=== PATIENT | female | born 1990 | race Caucasian/White ===

== ENCOUNTER 2018-03-13 04:53 | Emergency (ER) | payer MEDICAID ==
[2018-03-13] MEDS ORDERED: ONDANSETRON 4 MG/2 ML VIAL IVP STA ×2 (05:07→06:08)
[2018-03-13] MEDS ORDERED: MORPHINE 10 MG/ML VIAL ONE ×2 (05:07→05:33)
[2018-03-13] MEDS ORDERED: SODIUM CHLORIDE 0.9% 1,000 ML IV ONE (05:07)
--- NOTE | 2018-03-13 05:12 | ED Physician Documentation ---
PD HPI NVD - Stated complaint Stated Complaint: LOW BLOOD SUGAR - Chief complaint Chief Complaint: Abd Pain - History obtained from History obtained from: Patient, Family - History of Present Illness Timing - onset: Yesterday Timing - details: Gradual onset, Still present Associated symptoms: Abdominal pain Contributing factors: Diabetes Similar symptoms before: Work up / diagnostics Recently seen: Not recently seen - Additonal information Additional information: Patient is a 27 year old female with a history of type one diabetes and gastroparesis who is presenting to the emergency department for nausea, vomiting and abdominal pain. Patient states that the last time she had an episode like this was 6 months or so ago. Patient has never had a gastric emptying study done before. Review of Systems Constitutional: denies: Fever, Chills GI: reports: Abdominal Pain, Nausea, Vomiting. denies: Diarrhea PD PAST MEDICAL HISTORY - Past Medical History Past Medical History: Yes Endocrine/Autoimmune: Type 1 diabetes - Past Surgical History Past Surgical History: No - Present Medications Home Medications: Ambulatory Orders Medication Instructions Recorded Confirmed Insulin Glargine [Lantus Solostar] 28 units SQ DAILY 03/13/18 03/13/18 Insulin Lispro [Humalog Kwikpen SQ DAILY 03/13/18 U-100] Metoclopramide [Reglan] 1 tab PO DAILY 03/13/18 03/13/18 Ondansetron Odt [Zofran] 4 mg TL Q6H PRN #14 tablet 03/13/18 Promethazine [Phenergan] 25 mg PO Q6H PRN #10 tab 03/13/18 - Allergies Allergies/Adverse Reactions: Allergies Allergy/AdvReac Type Severity Reaction Status Date / Time ciprofloxacin [From Cipro] Allergy Edema Verified 03/13/18 05:12 Penicillins Allergy Hives Verified 03/13/18 05:12 - Social History Does the pt smoke?: No Smoking Status: Never smoker Does the pt drink ETOH?: No Does the pt have substance abuse?: No - Immunizations Immunizations are current?: Yes - POLST Patient has POLST: No PD ED PE NORMAL - Vitals Vital signs reviewed: Yes - General General: Alert and oriented X 3 - HEENT HEENT: Atraumatic - Cardiac Cardiac: RRR - Respiratory Respiratory: No respiratory distress - Derm Derm: Normal color - Extremities Extremities: No deformity PD ED PE EXPANDED - HEENT HEENT: Dry mucous membranes - Abdomen Abdomen: Tender to palpation, Generalized/diffuse. No: Rebound, Guarding Results - Vitals Vitals: Vital Signs - 24 hr 03/13/18 03/13/18 03/13/18 04:56 05:29 05:52 Temperature 36.5 C Heart Rate 100 84 88 Respiratory 18 16 14 Rate Blood Pressure 103/71 100/70 101/66 O2 Saturation 98 96 96 03/13/18 03/13/18 03/13/18 06:14 06:22 07:05 Temperature Heart Rate 92 100 87 Respiratory 18 20 16 Rate Blood Pressure 101/69 101/69 100/60 O2 Saturation 100 100 97 Oxygen O2 Source Room air - Labs Labs: Laboratory Tests 03/13/18 03/13/18 03/13/18 05:02 05:05 05:05 WBC 18.9 H RBC 4.96 Hgb 14.7 Hct 44.6 MCV 89.9 MCH 29.6 MCHC 33.0 RDW 13.0 Plt Count 363 MPV 8.5 Neut # (Auto) 15.9 H Lymph # (Auto) 1.5 Bartholomew # (Auto) 1.3 H Eos # (Auto) 0.1 Baso # (Auto) 0.1 Absolute Nucleated RBC 0.01 Nucleated RBC % 0.1 VBG pH VBG pCO2 VBG pO2 VBG HCO3 VBG Total CO2 VBG O2 Saturation VBG Base Excess Sodium 139 Potassium 3.6 Chloride 102 Carbon Dioxide 27 Anion Gap 10.0 BUN 15 Creatinine 0.7 Estimated GFR (MDRD) 100 Glucose 138 H POC Whole Bld Glucose 130 H Calcium 8.8 Phosphorus 4.9 H Magnesium 1.7 Total Bilirubin 0.7 AST 17 ALT 16 Alkaline Phosphatase 67 Total Protein 7.3 Albumin 3.7 Globulin 3.6 Albumin/Globulin Ratio 1.0 Lipase 18 L Urine Color Urine Clarity Urine pH Ur Specific [place] Urine Protein Urine Glucose (UA) Urine Ketones Urine Occult Blood Urine Nitrite Urine Bilirubin Urine Urobilinogen Ur Leukocyte Esterase Ur Microscopic Review Urine Culture Comments Urine HCG, Qual Urine Opiates Screen Ur Oxycodone Screen Urine Methadone Screen Ur Propoxyphene Screen Ur Barbiturates Screen Ur Tricyclics Screen Ur Phencyclidine Scrn Ur Amphetamine Screen U Methamphetamines Scrn U Benzodiazepines Scrn Urine Cocaine Screen U Cannabinoids Screen Serum Ketones NEGATIVE 03/13/18 03/13/18 03/13/18 05:25 05:48 05:48 WBC RBC Hgb Hct MCV MCH MCHC RDW Plt Count MPV Neut # (Auto) Lymph # (Auto) Bartholomew # (Auto) Eos # (Auto) Baso # (Auto) Absolute Nucleated RBC Nucleated RBC % VBG pH 7.509 H VBG pCO2 28.5 L VBG pO2 21.1 L VBG HCO3 22.2 L VBG Total CO2 23.1 L VBG O2 Saturation 92.3 H VBG Base Excess 0.4 Sodium Potassium Chloride Carbon Dioxide Anion Gap BUN Creatinine Estimated GFR (MDRD) Glucose POC Whole Bld Glucose Calcium Phosphorus Magnesium Total Bilirubin AST ALT Alkaline Phosphatase Total Protein Albumin Globulin Albumin/Globulin Ratio Lipase Urine Color YELLOW Urine Clarity CLEAR Urine pH 6.5 Ur Specific [place] 1.020 Urine Protein NEGATIVE Urine Glucose (UA) >=1000 H Urine Ketones NEGATIVE Urine Occult Blood NEGATIVE Urine Nitrite NEGATIVE Urine Bilirubin NEGATIVE Urine Urobilinogen 0.2 (NORMAL) Ur Leukocyte Esterase NEGATIVE Ur Microscopic Review NOT INDICATED Urine Culture Comments NOT INDICATED Urine HCG, Qual NEGATIVE Urine Opiates Screen NEGATIVE Ur Oxycodone Screen NEGATIVE Urine Methadone Screen NEGATIVE Ur Propoxyphene Screen NEGATIVE Ur Barbiturates Screen NEGATIVE Ur Tricyclics Screen NEGATIVE Ur Phencyclidine Scrn NEGATIVE Ur Amphetamine Screen NEGATIVE U Methamphetamines Scrn NEGATIVE U Benzodiazepines Scrn NEGATIVE Urine Cocaine Screen NEGATIVE U Cannabinoids Screen POSITIVE H Serum Ketones PD MEDICAL DECISION MAKING - ED course Complexity details: reviewed old records, reviewed results, re-evaluated patient , considered differential, d/w patient ED course: Patient was seen and examined at bedside. Labs were drawn and patient was treated with ns bolus, zofran and morphine. patient's labs showed no ketosis, and blood sugar was normal. Patient's urinalysis also showed no ketones. Patient continued to wretch and was treated with additional zofran and haldol. patient denied marijuana use but her tox screen was positive. Patient had a leukocytosis but stated that she didn't think imaging was necessary at this time. patient responded well to the haldol. Patient's other labs were all within normal limits. Patient required no further work up and was stable for discharge with outpatient followup. - Sepsis Event Vital Signs: Vital Signs - 24 hr 03/13/18 03/13/18 03/13/18 04:56 05:29 05:52 Temperature 36.5 C Heart Rate 100 84 88 Respiratory 18 16 14 Rate Blood Pressure 103/71 100/70 101/66 O2 Saturation 98 96 96 03/13/18 03/13/18 03/13/18 06:14 06:22 07:05 Temperature Heart Rate 92 100 87 Respiratory 18 20 16 Rate Blood Pressure 101/69 101/69 100/60 O2 Saturation 100 100 97 Oxygen O2 Source Room air Departure - Departure Disposition: 01 Home, Self Care Clinical Impression: Vomiting Condition: Good Instructions: ED Nausea Vomiting Follow-Up: primary,care provider [Other] - Within 3 Days Prescriptions: Ondansetron Odt [Zofran] 4 mg TL Q6H PRN #14 tablet PRN Reason: Nausea / Vomiting Promethazine [Phenergan] 25 mg PO Q6H PRN #10 tab PRN Reason: Nausea / Vomiting Comments: Your diagnostics today were within normal limits aside from an elevated white blood cell count which could be caused by infection, stress or pain. You have been prescribed two different any nausea medications. It is important to try to stay hydrated with gatorade or other electrolyte solution. If you are going to stay in the area you will need to establish primary care. you may return to the emergency department at any time for new, worsening or uncontrollable symptoms. Discharge Date/Time: 03/13/18 07:20
[2018-03-13] MEDS ORDERED: MORPHINE 10 MG/ML VIAL IVP STA (05:19)
[2018-03-13 05:20] LABS: BASOPHILS # (AUTO) 0.1 10^3/uL (0.0-0.1); MONOCYTES # (AUTO) 1.3 10^3/uL (0.0-1.0)
[2018-03-13 05:22] LABS: KETONES, SERUM (ACETEST) NEGATIVE (NEGATIVE)
[2018-03-13 05:27] LABS: ALBUMIN 3.7 g/dL (3.2-5.5); ALKALINE PHOSPHATASE 67 IU/L (42-121); ALT ALANINE AMINOTRANSFERASE 16 IU/L (10-60); AST ASPARTATE AMINOTRANSFERASE 17 IU/L (10-42); BASOPHILS % (AUTO) 0.3 %; BILIRUBIN,TOTAL 0.7 mg/dL (0.2-1.0); BUN - BLOOD UREA NITROGEN 15 mg/dL (6-20); CALCIUM 8.8 mg/dL (8.5-10.3); CARBON DIOXIDE - CO2 27 mmol/L (21-32); CHLORIDE 102 mmol/L (101-111); CREATININE 0.7 mg/dL (0.4-1.0); EOSINOPHILS # (AUTO) 0.1 10^3/uL (0.0-0.7); EOSINOPHILS % (AUTO) 0.7 %; GFR - MDRD 100 (>89); GLUCOSE 138 mg/dL (70-100); HGB - HEMOGLOBIN 14.7 g/dL (12.0-16.0); LIPASE 18 U/L (22-51); LYMPHOCYTES # (AUTO) 1.5 10^3/uL (1.5-3.5); LYMPHOCYTES % (AUTO) 7.9 %; MAGNESIUM 1.7 mg/dL (1.7-2.8); MEAN CORPUSCULAR HEMOGLOBIN 29.6 pg (27.0-31.0); MEAN CORPUSCULAR VOLUME 89.9 fL (81.0-99.0); MEAN PLATELET VOLUME 8.5 fL (7.9-10.8); MONOCYTES % (AUTO) 6.9 %; NEUTROPHILS # (AUTO) 15.9 10^3/uL (1.5-6.6); NEUTROPHILS % (AUTO) 84.2 %; PHOSPHORUS 4.9 mg/dL (2.5-4.6); PLT - PLATELET COUNT 363 10^3/uL (130-450); RED BLOOD COUNT 4.96 10^6/uL (4.20-5.40); SODIUM 139 mmol/L (135-145); TOTAL PROTEIN 7.3 g/dL (6.7-8.2); WHITE BLOOD COUNT 18.9 x10^3/uL (4.8-10.8)
[2018-03-13 05:30] LABS: VBG BASE EXCESS 0.4 mmol/L (-2 - +2); VBG PCO2 28.5 mmHg (41-51); VBG PH 7.509 (7.31-7.41); VBG PO2 21.1 mmHg (25-47); VBG TOTAL CO2 23.1 mmol/L (24-29)
[2018-03-13 05:54] LABS: MUDS CUTOFF CONCENTRATIONS CUTOFF CONC BELOW:
[2018-03-13 05:56] LABS: BILIRUBIN,URINE NEGATIVE (NEGATIVE); GLUCOSE, URINE (UA) >=1000 mg/dL (NEGATIVE); KETONES,URINE (UA) NEGATIVE (NEGATIVE); LEUKOCYTE ESTERASE, URINE NEGATIVE (NEGATIVE); NITRITE,URINE NEGATIVE (NEGATIVE); OCCULT BLOOD,URINE NEGATIVE (NEGATIVE); PH,URINE 6.5 PH (5.0-7.5); PROTEIN,URINE NEGATIVE (NEGATIVE); UROBILINOGEN,URINE 0.2 (NORMAL) E.U./dL (NORMAL)
[2018-03-13 06:09] LABS: CLARITY,URINE CLEAR (CLEAR); HCG UR QUAL NEGATIVE
[2018-03-13 06:10] LABS: AMPHETAMINE SCREEN,URINE NEGATIVE (NEGATIVE); BENZODIAZEPINES SCREEN, URINE NEGATIVE (NEGATIVE); COCAINE SCREEN URINE NEGATIVE (NEGATIVE); METHADONE SCREEN, URINE NEGATIVE (NEGATIVE); METHAMPHETAMINES SCREEN, URINE NEGATIVE (NEGATIVE); OPIATE SCREEN, URINE NEGATIVE (NEGATIVE); OXYCODONE SCREEN, URINE NEGATIVE (NEGATIVE); PROPOXYPHENE SCREEN, URINE NEGATIVE (NEGATIVE); TRICYCLIC ANTIDEPRESSANT,URINE NEGATIVE (NEGATIVE)
[2018-03-13] MEDS ORDERED: HALOPERIDOL 5 MG/ML VIAL IVP ONE (06:25)
[2018-03-13 07:07] VITALS: BP 100/60
== END 2018-03-13 07:20 | disposition home or self-care (01) ==
LOC: ED 04:53
DX: R11.2 Nausea with vomiting, unspecified (principal); D72.829 Elevated white blood cell count, unspecified; E10.43 Type 1 diabetes mellitus with diabetic autonomic (poly)neuropathy; K31.84 Gastroparesis
CPT/HCPCS: 36415; 80053; 80306; 81001; 81003; 81025; 82009; 82803; 83690; 83735; 84100; 85025; 87086; 96361; 96374; 96375; 96376; 99283; 99284

== ENCOUNTER 2022-06-27 10:08 | Emergency (ER) | payer MEDICAID, OTHER ==
[2022-06-27 10:49] LABS: BILIRUBIN,URINE NEGATIVE (NEGATIVE)
[2022-06-27 10:53] LABS: CLARITY,URINE HAZY (CLEAR); HCG UR QUAL NEGATIVE
[2022-06-27 11:05] LABS: SQUAMOUS EPITHELIAL CELL,UR FEW Squamous (<= Few); WBC,URINE >25 /HPF (0-5)
[2022-06-27 11:06] LABS: BACTERIA,URINE Rare /HPF (None Seen)
--- NOTE | 2022-06-27 11:14 | ED Physician Documentation ---
PD HPI FEMALE - Stated complaint Stated Complaint: FEMALE - Chief complaint Chief Complaint: UTI - History obtained from History obtained from: Patient - History of Present Illness Timing - onset: Yesterday Timing - duration: Days (1) Timing - details: Abrupt onset, Still present Associated symptoms: Dysuria, Urinary frequency. No: Vaginal bleeding, Vaginal discharge, Genital sore/lesion Similar symptoms before: Diagnosis (c/w prior UTIs.) Recently seen: Not recently seen, Other (also out of her humalog insulin and no appt with pcp til later in month.) Review of Systems Constitutional: denies: Fever, Chills Nose: denies: Rhinorrhea / runny nose, Congestion Throat: denies: Sore throat Respiratory: denies: Cough : denies: Discharge, Vaginal bleeding PD PAST MEDICAL HISTORY - Past Medical History Endocrine/Autoimmune: Type 1 diabetes - Past Surgical History Past Surgical History: No - Present Medications Home Medications: Ambulatory Orders Medication Instructions Recorded Confirmed Insulin Glargine [Lantus Solostar] 30 units SQ QPM 03/13/18 06/27/22 Insulin Lispro [Humalog Kwikpen 5 units SQ DAILY 03/13/18 06/27/22 U-100] Metoclopramide [Reglan] 1 tab PO DAILY PRN 03/13/18 06/27/22 Insulin Lispro [Humalog Kwikpen See Rx Instructions .ROUTE 06/27/22 U-100] .COMPLEX #1 each Phenazopyridine HCl [Pyridium] 100 mg PO TID PRN #15 tablet 06/27/22 cephALEXin [Keflex] 500 mg PO TID #20 cap 06/27/22 - Allergies Allergies/Adverse Reactions: Allergies Allergy/AdvReac Type Severity Reaction Status Date / Time ciprofloxacin [From Cipro] Allergy Edema Verified 03/13/18 05:12 Penicillins Allergy Hives Verified 03/13/18 05:12 - Social History Does the pt smoke?: No Smoking Status: Never smoker Does the pt drink ETOH?: No Does the pt have substance abuse?: No - Immunizations Immunizations are current?: Yes - POLST Patient has POLST: No PD ED PE NORMAL - Vitals Vital signs reviewed: Yes - General General: Alert and oriented X 3, No acute distress, Well developed/nourished - Abdomen Abdomen: Soft, Non tender - Female Female : Deferred - Rectal Rectal: Deferred - Derm Derm: Normal color, Warm and dry - Neuro Neuro: Alert and oriented X 3, Normal speech Results - Vitals Vitals: Oxygen O2 Source Room air - Labs Labs: Laboratory Tests 06/27/22 10:39 Urine Color ORANGE Urine Clarity HAZY Urine pH Ur Specific [place] Urine Protein Urine Glucose (UA) Urine Ketones Urine Occult Blood Urine Nitrite Urine Bilirubin NEGATIVE Urine Urobilinogen Ur Leukocyte Esterase Urine RBC 6-10 H Urine WBC >25 H Ur Squamous Epith Cells FEW Squamous Urine Bacteria Rare Ur Microscopic Review INDICATED Urine Culture Comments NOT INDICATED Urine HCG, Qual NEGATIVE PD MEDICAL DECISION MAKING - ED course Complexity details: considered differential (symptoms c/w UTI. UA showing colration from pyridium, but does have white cells, bacteria. ), d/w patient Departure - Departure Disposition: 01 Home, Self Care Clinical Impression: UTI (urinary tract infection), Dysuria, Diabetes Condition: Stable Record reviewed to determine appropriate education?: Yes Instructions: ED UTI Cystitis Female Prescriptions: Insulin Lispro [Humalog Kwikpen U-100] See Rx Instructions .ROUTE .COMPLEX #1 each cephALEXin [Keflex] 500 mg PO TID #20 cap Phenazopyridine HCl [Pyridium] 100 mg PO TID PRN #15 tablet PRN Reason: Abdominal Pain Comments: Your urinalysis looks consistent enough with bladder infection along with your symptoms. We can treat with cephalexin 3 times daily for a week. You can continue phenazopyridine if needed for urinary discomfort. Tylenol if needed for fevers or pains. I also wrote for your Humalog pen. Please use it per your usual sliding scale. I sent your prescriptions to your preferred pharmacy. Discharge Date/Time: 06/27/22 12:00
[2022-06-27] MEDS ORDERED: cephALEXin 250 MG CAPSULE PO STA (11:34)
[2022-06-27] MEDS ORDERED: ACETAMINOPHEN 325 MG TABLET PO STA (11:35)
[2022-06-27 12:00] VITALS: BP 112/78
== END 2022-06-27 12:00 | disposition home or self-care (01) ==
LOC: ED 10:08
DX: N39.0 Urinary tract infection, site not specified (principal); B96.89 Other specified bacterial agents as the cause of diseases classified elsewhere; E10.9 Type 1 diabetes mellitus without complications; Z79.4 Long term (current) use of insulin
CPT/HCPCS: 81001; 81025; 99282; 99283; A9270; 81003; 87086

== ENCOUNTER 2022-08-17 19:22 | Emergency (ER) | payer SELFPAY ==
[2022-08-17 19:58] LABS: BILIRUBIN,URINE NEGATIVE (NEGATIVE); GLUCOSE, URINE (UA) >=1000 mg/dL (NEGATIVE); KETONES,URINE (UA) NEGATIVE (NEGATIVE); LEUKOCYTE ESTERASE, URINE TRACE (NEGATIVE); NITRITE,URINE NEGATIVE (NEGATIVE); OCCULT BLOOD,URINE TRACE-INTA (NEGATIVE); PROTEIN,URINE NEGATIVE (NEGATIVE); UROBILINOGEN,URINE 0.2 (NORMAL) E.U./dL (NORMAL)
[2022-08-17 20:01] LABS: CLARITY,URINE CLOUDY (CLEAR); HCG UR QUAL NEGATIVE
[2022-08-17 20:10] LABS: BACTERIA,URINE Few /HPF (None Seen); RBC,URINE 0-5 /HPF (0-5); SQUAMOUS EPITHELIAL CELL,UR RARE Squamous (<= Few); WBC,URINE >25 /HPF (0-5)
[2022-08-17 22:37] VITALS: BP 111/74
[2022-08-17 23:11] LABS: CALCIUM 8.6 mg/dL (8.5-10.3); CREATININE 0.6 mg/dL (0.4-1.0); POTASSIUM 3.6 mmol/L (3.5-5.0)
[2022-08-17] MEDS ORDERED: ONDANSETRON ODT 4 MG Prepack 2 TL PRN (23:12)
[2022-08-17] MEDS ORDERED: SULFAMETH/TRIMETH DS 800/160 MG TABLET PO STA (23:12)
--- NOTE | 2022-08-17 23:15 | ED Physician Documentation ---
History of Present Illness - Stated complaint Stated Complaint: FEMALE /BACK PX - Chief complaint Chief Complaint: UTI - History obtained from History obtained from: Patient - Additonal information Additional information: The patient comes to the emergency department with chief complaint of dysuria for the last couple of days. She actually states that she has felt as though she has had a UTI on and off for about the last month and a half since treatment of her last urinary tract infection. The patient denies fevers or chills. She has had intermittent nausea. She has had some upper abdominal pain that has come and gone today. She has occasional back pain. No other complaints at this time. She does note that she is a type I diabetic and is out of her Lantus and would like to know if that can be refilled. Review of Systems Ten Systems: 10 systems reviewed and negative Constitutional: reports: Reviewed and negative Eyes: reports: Reviewed and negative Ears: reports: Reviewed and negative Nose: reports: Reviewed and negative Throat: reports: Reviewed and negative Cardiac: reports: Reviewed and negative Respiratory: reports: Reviewed and negative GI: reports: Nausea : reports: Dysuria Skin: reports: Reviewed and negative Musculoskeletal: reports: Back pain Neurologic: reports: Reviewed and negative Psychiatric: reports: Reviewed and negative Endocrine: reports: Reviewed and negative Immunocompromised: reports: Reviewed and negative PD PAST MEDICAL HISTORY - Past Medical History Past Medical History: Yes Endocrine/Autoimmune: Type 1 diabetes - Past Surgical History Past Surgical History: No - Present Medications Home Medications: Ambulatory Orders Medication Instructions Recorded Confirmed Insulin Glargine [Lantus Solostar] 30 units SQ QPM 03/13/18 08/17/22 Insulin Lispro [Humalog Kwikpen 5 units SQ DAILY 03/13/18 08/17/22 U-100] Insulin Lispro [Humalog Kwikpen See Rx Instructions .ROUTE 06/27/22 08/17/22 U-100] .COMPLEX #1 each Insulin Glargine,Hum.rec.anlog 32 unit SQ HS #320 ml 08/17/22 [Insulin Glargine] Sulfamethox/Trimeth 800/160 1 each PO BID #14 tablet 08/17/22 [Bactrim Ds 800/160] cephALEXin [Keflex] 500 mg PO Q6H #28 cap 08/17/22 - Allergies Allergies/Adverse Reactions: Allergies Allergy/AdvReac Type Severity Reaction Status Date / Time ciprofloxacin [From Cipro] Allergy Edema Verified 08/17/22 19:40 Penicillins Allergy Hives Verified 08/17/22 19:40 - Social History Does the pt smoke?: No Smoking Status: Never smoker Does the pt drink ETOH?: No Does the pt have substance abuse?: No - Immunizations Immunizations are current?: Yes - POLST Patient has POLST: No PD ED PE NORMAL - Vitals Vital signs reviewed: Yes - General General: Alert and oriented X 3, No acute distress, Well developed/nourished - HEENT HEENT: Atraumatic, PERRL, EOMI, Moist mucous membranes - Neck Neck: Supple, no meningeal sign - Cardiac Cardiac: RRR, No murmur, Strong equal pulses - Respiratory Respiratory: No respiratory distress, Clear bilaterally - Abdomen Abdomen: Soft, Non tender, Non distended - Derm Derm: Normal color, Warm and dry, No rash - Extremities Extremities: No deformity, No edema - Neuro Neuro: Alert and oriented X 3 - Psych Psych: Normal mood, Normal affect Results - Vitals Vitals: Vital Signs - 24 hr 08/17/22 08/17/22 19:34 22:36 Temperature 36.7 C 36.3 C L Heart Rate 86 85 Respiratory 14 16 Rate Blood Pressure 111/72 111/74 O2 Saturation 98 99 Oxygen O2 Source Room air - Labs Labs: Laboratory Tests 08/17/22 08/17/22 19:41 23:00 Sodium 136 Potassium 3.6 Chloride 101 Carbon Dioxide 25 Anion Gap 10.0 BUN 12 Creatinine 0.6 Estimated GFR (MDRD) 115 Glucose 123 H Calcium 8.6 Urine Color YELLOW Urine Clarity CLOUDY Urine pH 7.0 Ur Specific [place] 1.020 Urine Protein NEGATIVE Urine Glucose (UA) >=1000 H Urine Ketones NEGATIVE Urine Occult Blood TRACE-INTA Urine Nitrite NEGATIVE Urine Bilirubin NEGATIVE Urine Urobilinogen 0.2 (NORMAL) Ur Leukocyte Esterase TRACE H Urine RBC 0-5 Urine WBC >25 H Ur Squamous Epith Cells RARE Squamous Urine Bacteria Few Ur Microscopic Review INDICATED Urine Culture Comments INDICATED Urine HCG, Qual NEGATIVE PD Medical Decision Making - ED course Complexity details: reviewed results, re-evaluated patient, considered differential, d/w patient ED course: The patient was worked up with a urinalysis, which did show findings consistent with UTI. She was also noted to have a glucose of greater than 1000 in her UA, so a fingerstick glucose was performed. The patient was started on Bactrim. She did also report some nausea and though she did not want a dose of nausea medicine here, she was given a prepack of Zofran to go home with. We have discussed symptomatic management at home and the need to take all the antibiotics as directed. We have discussed the usual indications for return Departure - Departure Disposition: Home, Self Care Clinical Impression: Cystitis, Hyperglycemia due to type 1 diabetes mellitus Condition: Stable Instructions: ED Hyperglycemia Diabetic, ED UTI Cystitis Female Prescriptions: Sulfamethox/Trimeth 800/160 [Bactrim Ds 800/160] 1 each PO BID #14 tablet Insulin Glargine,Hum.rec.anlog [Insulin Glargine] 32 unit SQ HS #320 ml cephALEXin [Keflex] 500 mg PO Q6H #28 cap Comments: You have been given your first dose of antibiotics in the emergency department today. Prescriptions for Lantus and the antibiotic have been electronically transmitted to the [facility] pharmacy in [place] at your request. Please take all the antibiotics as directed, until the course is complete. Please follow- up with your primary care physician, as needed.
== END 2022-08-17 23:35 | disposition home or self-care (01) ==
LOC: ED 19:22
DX: N30.90 Cystitis, unspecified without hematuria (principal); E10.65 Type 1 diabetes mellitus with hyperglycemia; R11.0 Nausea
CPT/HCPCS: 36415; 80048; 81001; 81025; 87077; 87086; 87181; 99283; 99284; A9270; 81003

== ENCOUNTER 2023-03-20 20:00 | Emergency (ER) | payer OTHER ==
[2023-03-20 20:08] VITALS: BP 144/88
[2023-03-20] MEDS ORDERED: FLUCONAZOLE 100 MG TABLET PO STA (20:26)
--- NOTE | 2023-03-20 20:29 | ED Physician Documentation ---
History of Present Illness - Stated complaint Stated Complaint: FEMALE - Chief complaint Chief Complaint: General - History obtained from History obtained from: Patient - Additonal information Additional information: The patient comes to the emergency department chief complaint of foul-smelling vaginal output after a random sexual encounter about 2-1/2 weeks ago. The patient states she was intoxicated and had sexual intercourse, both orally and vaginally, with an unknown man. She states that he is from somewhere else and she has had no contact with them since. She states she is concerned because the condom kept coming off and she is first of all suspicious that there may still be a condom retained in her vagina, and also, That she may have contracted a sexually transmitted infection. She states that she started her period about a week after the sexual encounter and that she uses vaginal cups. She noticed that the contents of the cups smelled more foul than she would normally expect on her period and wondered if there was an infection. She states that since then, and her odor has been worse than usual, though she feels that discharge output is about the same as usual. She states she has had some cramping in her pelvic area but denies any other pain or discomfort. She has had some itching is concerned about a yeast infection. The patient denies any pain higher up in her abdomen. No fevers or chills. No nausea or vomiting. She has had 1 other sexual partner since and states that that person does not have any symptoms that she knows of. No other complaints at this time. PD PAST MEDICAL HISTORY - Past Medical History Endocrine/Autoimmune: Type 1 diabetes - Past Surgical History Past Surgical History: No - Present Medications Home Medications: Ambulatory Orders Medication Instructions Recorded Confirmed Insulin Glargine [Lantus Solostar] 30 units SQ QPM 03/13/18 08/17/22 Insulin Lispro [Humalog Kwikpen 5 units SQ DAILY 03/13/18 08/17/22 U-100] Insulin Lispro [Humalog Kwikpen See Rx Instructions .ROUTE 06/27/22 08/17/22 U-100] .COMPLEX #1 each Insulin Glargine,Hum.rec.anlog 32 unit SQ HS #320 ml 08/17/22 [Insulin Glargine] Sulfamethox/Trimeth 800/160 1 each PO BID #14 tablet 08/17/22 [Bactrim Ds 800/160] cephALEXin [Keflex] 500 mg PO Q6H #28 cap 08/17/22 Fluconazole [Diflucan] 1 tablet PO ONCE 1 Days #1 tablet 03/20/23 - Allergies Allergies/Adverse Reactions: Allergies Allergy/AdvReac Type Severity Reaction Status Date / Time ciprofloxacin [From Cipro] Allergy Edema Verified 03/20/23 20:05 Penicillins Allergy Hives Verified 03/20/23 20:05 - Social History Does the pt smoke?: No Smoking Status: Never smoker Does the pt drink ETOH?: No Does the pt have substance abuse?: No - Immunizations Immunizations are current?: Yes - POLST Patient has POLST: No PD ED PE NORMAL - Vitals Vital signs reviewed: Yes - General General: Alert and oriented X 3, No acute distress, Well developed/nourished - HEENT HEENT: Atraumatic, PERRL, EOMI, Moist mucous membranes, Pharynx benign - Neck Neck: Supple, no meningeal sign - Respiratory Respiratory: No respiratory distress - Abdomen Abdomen: Soft, Non tender, Non distended - Female Female : Data Sciences Director present (Nursing staff), Other (Normal external female genitalia. Mild white discharge, non-malodorous, and vaginal canal. Approximately 1 cm diameter macerated area over cervix adjacent to os. Os is friable and bleeds easily on swabbing. No palpable masses. Bimanual exam is unremarkable.) - Derm Derm: Normal color, Warm and dry, No rash - Extremities Extremities: No deformity - Neuro Neuro: Alert and oriented X 3 - Psych Psych: Normal mood, Normal affect Results - Vitals Vitals: Vital Signs - 24 hr 03/20/23 20:02 Temperature 36.8 C Heart Rate 106 H Respiratory 16 Rate Blood Pressure 144/88 H O2 Saturation 100 Oxygen O2 Source Room air PD Medical Decision Making - ED course Complexity details: reviewed results, re-evaluated patient, considered differential, d/w patient ED course: The patient was treated with Diflucan in the emergency department. I have sent a wet mount and swabs for gonorrhea and chlamydia. The patient also requested a throat culture and that has been done as well. At this point in time, the patient's exam is actually fairly benign although I have discussed with her that the maceration and friability of her cervix should be followed up by her animal pathologist. The patient has had a Pap within the last 6 months and does not have any palpable masses, and there were a number of possible benign explanations for the friable cervix but considering patient's sexual history and findings, close gynecologic follow-up is advisable. The patient expresses understanding. I have sent a prescription for follow-up dose of Diflucan to the pharmacy of the patient's choice. Discussed the usual indications for return. Departure - Departure Disposition: 01 Home, Self Care Clinical Impression: Vaginal discharge Condition: Stable Instructions: STD Poss Prescriptions: Fluconazole [Diflucan] 1 tablet PO ONCE 1 Days #1 tablet Comments: Swabs have been sent testing for common sexually transmitted diseases including trichomonas, gonorrhea, and chlamydia. You have been treated presumptively for a yeast infection in the ED today, and a prescription for your follow-up dose of Diflucan has been electronically transmitted to the [facility] pharmacy in [place]. Your vaginal exam is actually fairly normal except, as we discussed, for the raw area on your cervix and the easy bleeding. You do have a fairly small cervical opening and this may be part of the tendency to bleed, but you should definitely follow-up with your animal pathologist within the next month or so to have the area rechecked and make sure they do not feel that you need a repeat Pap smear earlier than the 1 year mitchell. As far as your other testing, it does not come back right away but we will get results within the next few days. Any positive results will result in you being notified by phone at home by one of her ED staff and the treatment plan set up. If any of your sexually transmitted infection results come back positive, you will need to notify any sexual partners that you can and to make sure that they are treated before further sexual contact.
[2023-03-20 20:55] LABS: BILIRUBIN,URINE NEGATIVE (NEGATIVE); GLUCOSE, URINE (UA) >=1000 mg/dL (NEGATIVE); KETONES,URINE (UA) NEGATIVE (NEGATIVE); LEUKOCYTE ESTERASE, URINE NEGATIVE (NEGATIVE); NITRITE,URINE NEGATIVE (NEGATIVE); OCCULT BLOOD,URINE NEGATIVE (NEGATIVE); PROTEIN,URINE NEGATIVE (NEGATIVE); UROBILINOGEN,URINE 0.2 (NORMAL) E.U./dL (NORMAL)
[2023-03-20 20:58] LABS: CLARITY,URINE CLEAR (CLEAR); HCG UR QUAL NEGATIVE
[2023-03-20 23:12] LABS: CHLAMYDIA TRACHOMATIS DNA NEGATIVE (NEGATIVE); NEISSERIA GONORRHOEAE DNA NEGATIVE (NEGATIVE); TRICHOMONAS VAGINALIS DNA NEGATIVE (NEGATIVE)
--- NOTE | 2023-03-21 11:43 | ED Physician Documentation ---
ED Addendum - Addendum Addendum: 03/21/23 11:42 Wet mount positive for clue cells. I sent a prescription for Flagyl 5 mg p.o. twice daily for 7 days to the [facility] on the chart. I called the number on the chart and left a voicemail for her to call back for results. When she calls back she can probably stop the Diflucan. Diagnosis: 1. Bacterial vaginosis. 03/21/23 11:42
== END 2023-03-20 20:47 | disposition home or self-care (01) ==
LOC: ED 20:00
DX: N76.0 Acute vaginitis (principal); B96.89 Other specified bacterial agents as the cause of diseases classified elsewhere; E10.9 Type 1 diabetes mellitus without complications
CPT/HCPCS: 81003; 81025; 87070; 87210; 87491; 87591; 87661; 99283; 99284; A9270; 81001; 87086

== ENCOUNTER 2023-07-07 08:00 | Outpatient (CLI) | payer OTHER | END 2023-07-07 23:58 | disposition home or self-care (01) | LOC: LAB.N 08:00 | PROVIDERS: ATTEND Nurse Practitioner | DX: R30.0 Dysuria (principal) | CPT/HCPCS: 87086 ==

== ENCOUNTER 2024-08-12 18:59 | Observation (INO) ==
[2024-08-12 19:13] LABS: BASOPHILS # (AUTO) 0.1 10^3/uL (0.0-0.1); BASOPHILS % (AUTO) 0.7 %; EOSINOPHILS % (AUTO) 0.2 %; HCT - HEMATOCRIT 43.6 % (37.0-47.0); HGB - HEMOGLOBIN 14.3 g/dL (12.0-16.0); LYMPHOCYTES # (AUTO) 1.7 10^3/uL (1.5-3.5); LYMPHOCYTES % (AUTO) 12.5 %; MEAN CORPUSCULAR HEMOGLOBIN 29.4 pg (27.0-31.0); MEAN CORPUSCULAR HGB CONC 32.8 g/dL (32.0-36.0); MEAN CORPUSCULAR VOLUME 89.5 fL (81.0-99.0); MEAN PLATELET VOLUME 9.7 fL (7.9-10.8); MONOCYTES # (AUTO) 0.9 10^3/uL (0.0-1.0); MONOCYTES % (AUTO) 6.6 %; NEUTROPHILS # (AUTO) 10.8 10^3/uL (1.5-6.6); NEUTROPHILS % (AUTO) 79.6 %; PLT - PLATELET COUNT 276 10^3/uL (130-450); RED BLOOD COUNT 4.87 10^6/uL (4.20-5.40); RED CELL DISTRIBUTION WIDTH 13.6 % (12.0-15.0); WHITE BLOOD COUNT 13.6 x10^3/uL (4.8-10.8)
--- NOTE | 2024-08-12 19:19 | ED Physician Documentation ---
History of Present Illness Stated complaint Stated Complaint: HIGH BLOOD SUGAR Chief complaint Chief Complaint: General History obtained from History obtained from: Patient and EMS Additonal information Additional information: The patient is brought to the emergency department by EMS for chief complaint of elevated blood sugar vomiting and "I think I have a kidney infection and DKA". The patient has longstanding history of type 1 diabetes and is currently on 32 units of Lantus every evening. She also doses her Humalog at 1 unit per 8 g of carbs ingested, with an adjustment factor. The patient states that for the last several days, she has noticed that her urine smelled bad and she was concerned that she might have a urinary tract infection. She states she started vomiting this morning and so she did not take her Humalog because she was not ingesting any food. The patient states that she did not feel good so she was mostly laying down and did not get up to check her blood sugar. No other complaints at this time. She has had DKA multiple times before, usually associated with some sort of infection. Meds/Allgy Home Medications Ambulatory Orders Medication Instructions Recorded Confirmed insulin glargine 100 unit/mL (3 30 units SQ QPM 03/13/18 08/17/22 mL) subcutaneous pen (Lantus Solostar U-100 Insulin) insulin lispro 100 unit/mL 5 units SQ DAILY 03/13/18 08/17/22 subcutaneous pen (Humalog KwikPen (U-100) Insulin) insulin lispro 100 unit/mL See Rx Instructions .Route 06/27/22 08/17/22 subcutaneous pen (Humalog KwikPen .COMPLEX diabetes #1 ea (U-100) Insulin) cephalexin 500 mg capsule 500 mg PO Q6H #28 caps 08/17/22 insulin glargine 100 unit/mL 32 unit (0.32 mL) SQ HS #320 mL 08/17/22 subcutaneous solution sulfamethoxazole 800 1 ea PO BID #14 tabs 08/17/22 mg-trimethoprim 160 mg tablet fluconazole 150 mg tablet 1 tab PO ONCE 1 day #1 tab 03/20/23 (Diflucan) metronidazole 500 mg tablet 500 mg PO BID 7 days #14 tabs 03/21/23 Allergies Allergies Allergy/AdvReac Type Severity Reaction Status Date / Time ciprofloxacin (From Cipro) Allergy Edema Verified 08/12/24 19:14 Penicillins Allergy Hives Verified 08/12/24 19:14 [facility] Social History Social History Smoking Status: Never smoker Second hand tobacco smoke exposure: No Do you dip or chew tobacco?: No Do you vape?: No Relationship: Level: Independent Do you feel safe in your home environment?: Yes Suffered physical, verbal, emotional, or financial abuse?: No History of Abuse: No POLST Patient has POLST: No Exam Constitutional normal general appearance and no apparent distress The patient appears moderately uncomfortable otherwise no apparent distress. HENMT normocephalic, head/scalp atraumatic, external nose normal and oral mucous membranes normal Eyes EOMs intact bilaterally Neck/C-Spine visual inspection normal and supple Respiratory breath sounds equal bilaterally and clear to auscultation bilaterally Mild [place] respirations but otherwise normal effort. Cardiovascular normal heart rate noted, regular rhythm noted and no edema Gastrointestinal abdomen normal to inspection, abdomen soft to palpation, nontender to palpation and nondistended Genitourinary no CVA tenderness Extremities normal to inspection Neurology Alert, grossly intact Psychiatry mental status grossly normal Skin skin color normal Results Vitals Vitals: Vital Signs - 24 hr 08/12/24 19:14 08/12/24 19:17 08/12/24 19:51 Temperature 36.5 C Temperature Source Tympanic Pulse Rate 96 Respiratory Rate 24 Blood Pressure 113/61 O2 Saturation 94 O2 Source Room air Pain Intensity 6 6 7 08/12/24 20:55 08/12/24 21:17 08/12/24 21:33 Temperature Temperature Source Pulse Rate 91 Respiratory Rate 20 Blood Pressure 115/75 O2 Saturation 97 O2 Source Room air Pain Intensity 6 9 5 Oxygen O2 Source Room air Labs Labs: Laboratory Tests 08/12/24 08/12/24 08/12/24 19:04 19:19 20:58 WBC 13.6 H RBC 4.87 Hgb 14.3 Hct 43.6 MCV 89.5 MCH 29.4 MCHC 32.8 RDW 13.6 Plt Count 276 MPV 9.7 Neut # (Auto) 10.8 H Lymph # (Auto) 1.7 [place] # (Auto) 0.9 Eos # (Auto) 0.0 Baso # (Auto) 0.1 Absolute Nucleated RBC 0.00 Nucleated RBC % 0.0 VBG pH 7.255 L VBG pCO2 30.6 L VBG pO2 67.0 H VBG HCO3 13.6 L VBG Total CO2 15.0 L VBG O2 Saturation 90.0 H VBG Base Excess -14.0 L Sodium 132 L 135 Potassium 4.7 H 4.4 Chloride 95 L 107 Carbon Dioxide 13 L 14 L Anion Gap 24.0 H 14.0 H BUN 15 13 Creatinine 0.7 0.7 Estimated GFR (MDRD) 95 95 Glucose 409 H 242 H Calcium 8.6 7.3 L Magnesium 1.6 L Total Bilirubin 0.8 AST 9 L ALT 8 L Alkaline Phosphatase 59 Total Protein 7.2 Albumin 3.9 Globulin 3.3 Albumin/Globulin Ratio 1.2 Lipase < 10 L Serum HCG, Qual NEGATIVE Urine Color LIGHT YELLOW Urine Clarity CLEAR Urine pH 5.5 Ur Specific [place] 1.025 Urine Protein NEGATIVE Urine Glucose (UA) >=1000 H Urine Ketones >=80 H Urine Occult Blood NEGATIVE Urine Nitrite NEGATIVE Urine Bilirubin NEGATIVE Urine Urobilinogen 0.2 (NORMAL) Ur Leukocyte Esterase NEGATIVE Ur Microscopic Review NOT INDICATED Urine Culture Comments NOT INDICATED Serum Ketones MODERATE H PD Medical Decision Making ED course Complexity details: reviewed old records, reviewed results, re-evaluated patient , considered differential and d/w patient ED course: The patient was worked up with labs, including ER abdominal panel, CBC, serum ketones, and test, as well as VBG. Urinalysis was also ordered. She was started on a liter of 0.9 normal saline given 12 units of regular insulin, as well as Phenergan, as the Zofran she had received and route was not co ntrolling her nausea well enough. The patient was given an initial total of 2 L of normal saline and following this and had a blood sugar that had come down from the initial level of 409 on labs to 268. She was started on a 3rd L of normal saline and an insulin drip at 6 units/h was ordered. Her other laboratory studies showed a white count of 13.6 with normal H&H, VBG pH of 7.255 pCO2 of 30.6 and bicarb of 13.6. Her potassium was 4.4 and glucose was initially 409. Her anion gap was 24 and she was positive for serum ketones. I discussed the case with telemetry hospitalist on-call and he did agree to admit the patient to his service. The patient by then had been switched to insulin drip at 3 units/h and D5 half-normal saline at 250 cc/h because her blood sugar was down to the 190s. Patient remained stable throughout the rest of her stay in the ED and was transferred to the ICU. Discharge Plan Discharge Patient Disposition: [facility] DC/Xfer Condition: Critical Clinical Impression: DKA (diabetic ketoacidosis) Qualifiers: Diabetes mellitus type: type 1 Diabetes mellitus complication detail: without coma Qualified Code(s): E10.10 - Type 1 diabetes mellitus with ketoacidosis without coma Interventions: ED Admission Assessment Last Done: 08/12/24 22:07
[2024-08-12] MEDS: SODIUM CHLORIDE 0.9% 1,000 ML IV STA ×3 (19:21→20:48)
[2024-08-12 19:22] LABS: VBG HCO3 13.6 mmol/L (23-28); VBG PCO2 30.6 mmHg (41-51); VBG PH 7.255 (7.31-7.41)
[2024-08-12 19:23] LABS: BILIRUBIN,URINE NEGATIVE (NEGATIVE); GLUCOSE, URINE (UA) >=1000 mg/dL (NEGATIVE); KETONES,URINE (UA) >=80 mg/dL (NEGATIVE); LEUKOCYTE ESTERASE, URINE NEGATIVE (NEGATIVE); NITRITE,URINE NEGATIVE (NEGATIVE); OCCULT BLOOD,URINE NEGATIVE (NEGATIVE); PH,URINE 5.5 PH (5.0-7.5); PROTEIN,URINE NEGATIVE (NEGATIVE); UROBILINOGEN,URINE 0.2 (NORMAL) E.U./dL (NORMAL)
[2024-08-12 19:27] LABS: CLARITY,URINE CLEAR (CLEAR)
[2024-08-12] MEDS ORDERED: PROMETHAZINE 25 MG/1 ML VIAL ONE (19:29)
[2024-08-12] MEDS: PROMETHAZINE INJ 25 MG in SODIUM CHLORIDE 0.9% 50 ML IV STA (19:31)
[2024-08-12] MEDS: INSULIN REGULAR, HUMAN 300 UNIT/3 ML PEN IVP STA (19:33)
[2024-08-12 19:40] LABS: HCG,QUALITATIVE BLOOD NEGATIVE
[2024-08-12 19:47] LABS: ALBUMIN 3.9 g/dL (3.2-5.5); ALBUMIN/GLOBULIN RATIO 1.2 (1.0-2.2); ALKALINE PHOSPHATASE 59 IU/L (42-121); ALT ALANINE AMINOTRANSFERASE 8 IU/L (10-60); AST ASPARTATE AMINOTRANSFERASE 9 IU/L (10-42); BILIRUBIN,TOTAL 0.8 mg/dL (0.2-1.0); BUN - BLOOD UREA NITROGEN 15 mg/dL (6-20); CALCIUM 8.6 mg/dL (8.5-10.3); CARBON DIOXIDE - CO2 13 mmol/L (21-32); CHLORIDE 95 mmol/L (101-111); CREATININE 0.7 mg/dL (0.6-1.3); GFR - MDRD 95 (>89); GLUCOSE 409 mg/dL (74-104); LIPASE < 10 U/L (11-82); POTASSIUM 4.7 mmol/L (3.5-4.5); SODIUM 132 mmol/L (135-145); TOTAL PROTEIN 7.2 g/dL (6.4-8.9)
[2024-08-12] MEDS: HYDROmorphone 0.5 MG/0.5 ML SYRINGE IVP STA ×2 (19:51→21:17)
[2024-08-12 20:03] LABS: KETONES, SERUM (ACETEST) MODERATE (NEGATIVE)
[2024-08-12] MEDS: INSULIN REGULAR IN 0.9 % NS 100 UNIT/100 ML BAG IV STA (20:30)
[2024-08-12] MEDS ORDERED: SODIUM CHLORIDE FLUSH 0.9% 10 ML SYRINGE IVP PRN (21:23)
[2024-08-12 21:30] LABS: CALCIUM 7.3 mg/dL (8.5-10.3); CREATININE 0.7 mg/dL (0.6-1.3); POTASSIUM 4.4 mmol/L (3.5-4.5)
--- NOTE | 2024-08-12 21:44 | HISTORY & PHYSICAL EXAMINATION ---
Chief Complaint Chief Complaint Chief Complaint: Nausea, vomiting History of Present Illness History of Present Illness HPI Comment/Other: 34 y old female with PMH DM type 2 presented to ER with C/O nausea and vomiting for one day. Denies KAMARA, chest pain, SOB, cough, abdominal pain, diarrhea, constipation or symptoms On presetnation, pt was afebrile Labs showed leukocytosis, blood glucose 408, anion gap 24, bicarb 13, ketones positive In ER, pt was given 12 units of IV insulin and started on insulin gtt. Pt also received 3L NS bolus Repeat Blood glucose 268 Pt is admitted due to DKA Review of Systems Status of ROS: 10 or more systems reviewed and unremarkable except as noted in history and below PFSH Social History Social History Smoking Status: Never smoker Relationship: Do you feel safe in your home environment?: Yes Suffered physical, verbal, emotional, or financial abuse?: No History of Abuse: No POLST Patient has POLST: No Meds/Allgy Home Medications Ambulatory Orders Medication Instructions Recorded Confirmed insulin glargine 100 unit/mL (3 30 units SQ QPM 03/13/18 08/17/22 mL) subcutaneous pen (Lantus Solostar U-100 Insulin) insulin lispro 100 unit/mL 5 units SQ DAILY 03/13/18 08/17/22 subcutaneous pen (Humalog KwikPen (U-100) Insulin) insulin lispro 100 unit/mL See Rx Instructions .Route 06/27/22 08/17/22 subcutaneous pen (Humalog KwikPen .COMPLEX diabetes #1 ea (U-100) Insulin) cephalexin 500 mg capsule 500 mg PO Q6H #28 caps 08/17/22 insulin glargine 100 unit/mL 32 unit (0.32 mL) SQ HS #320 mL 08/17/22 subcutaneous solution sulfamethoxazole 800 1 ea PO BID #14 tabs 08/17/22 mg-trimethoprim 160 mg tablet fluconazole 150 mg tablet 1 tab PO ONCE 1 day #1 tab 03/20/23 (Diflucan) metronidazole 500 mg tablet 500 mg PO BID 7 days #14 tabs 03/21/23 Allergies Allergies Allergy/AdvReac Type Severity Reaction Status Date / Time ciprofloxacin (From Cipro) Allergy Edema Verified 08/12/24 19:14 Penicillins Allergy Hives Verified 08/12/24 19:14 Exam Constitutional normal general appearance HENMT normocephalic Eyes PERRL Neck/C-Spine visual inspection normal Chest inspection of chest normal Respiratory breath sounds equal bilaterally Cardiovascular normal heart rate noted Gastrointestinal abdomen normal to inspection Extremities normal to inspection Neurology no focal motor deficit noted Skin no rash Conclusion/Plan Problem List (1) DKA (diabetic ketoacidosis): Plan: A: DKA Nausea and vomiting Leukocytosis Dehydartion DM 2 uncontrolled Plan: Admit to ICU Start DKA protocol Start insulin gtt NS @ 125 cc/h Monitor blood glucose Q1H Monitor BMP Q2H Zofran iv prn DVT prophylaxic: SCD Full code Pt is admitted as inpatient as more than 2 midnight stay is expected Qualifiers: Diabetes mellitus complication detail: without coma Diabetes mellitus type: type 1 Qualified Code(s): E10.10 - Type 1 diabetes mellitus with ketoacidosis without coma Lab Results 08/12/24 19:04 08/12/24 19:04
[2024-08-12] MEDS: DEXTROSE 5%-0.45% NACL 1,000 ML IV STA (21:51)
[2024-08-12 22:58] LABS: MAGNESIUM 1.6 mg/dL (1.7-2.3)
[2024-08-12 23:04] LABS: CALCIUM 7.4 mg/dL (8.5-10.3); CREATININE 0.6 mg/dL (0.6-1.3); POTASSIUM 4.4 mmol/L (3.5-4.5)
[2024-08-12] MEDS: SODIUM CHLORIDE 0.9% 1,000 ML IV SCH (23:07)
[2024-08-12] MEDS: INSULIN REGULAR IN 0.9 % NS 100 UNIT/100 ML BAG IV SCH (23:07)
[2024-08-12] MEDS: DIVALPROEX DR 250 MG TABLET PO ONE (23:53)
[2024-08-12] MEDS: FLUoxetine 10 MG CAPSULE PO ONE (23:53)
[2024-08-12] MEDS: ACETAMINOPHEN 325 MG TABLET PO PRN (23:54)
[2024-08-12] MEDS: traZODone 50 MG TABLET PO SCH (23:54)
[2024-08-12] MEDS: MAGNESIUM SULFATE 2 GRAM 2 GM/50 ML BAG IV ONE (23:56)
[2024-08-13] MEDS: DEXTROSE 5%-0.45% NACL 1,000 ML IV SCH (01:06)
[2024-08-13] MEDS: SODIUM CHLORIDE FLUSH 0.9% 10 ML SYRINGE IVP SCH (01:06)
[2024-08-13 02:51] LABS: CALCIUM, IONIZED 1.08 mmol/L (1.15-1.33); VBG PH 7.34 (7.31-7.41)
[2024-08-13 02:53] LABS: MAGNESIUM 2.3 mg/dL (1.7-2.3)
[2024-08-13] MEDS ORDERED: MORPHINE 10 MG/ML VIAL IVP PRN (02:56)
[2024-08-13 02:58] LABS: CREATININE 0.6 mg/dL (0.6-1.3)
[2024-08-13] MEDS: ONDANSETRON 4 MG/2 ML VIAL IVP PRN (03:04)
[2024-08-13] MEDS: MORPHINE 2 MG/ML CARPUJECT IVP PRN (03:10)
[2024-08-13 04:21] LABS: BASOPHILS % (AUTO) 0.4 %; EOSINOPHILS % (AUTO) 0.1 %; HCT - HEMATOCRIT 35.9 % (37.0-47.0); HGB - HEMOGLOBIN 11.6 g/dL (12.0-16.0); LYMPHOCYTES # (AUTO) 2.2 10^3/uL (1.5-3.5); LYMPHOCYTES % (AUTO) 21.7 %; MEAN CORPUSCULAR HEMOGLOBIN 28.9 pg (27.0-31.0); MEAN CORPUSCULAR HGB CONC 32.3 g/dL (32.0-36.0); MEAN CORPUSCULAR VOLUME 89.5 fL (81.0-99.0); MEAN PLATELET VOLUME 9.3 fL (7.9-10.8); MONOCYTES # (AUTO) 0.7 10^3/uL (0.0-1.0); MONOCYTES % (AUTO) 7.5 %; NEUTROPHILS # (AUTO) 6.9 10^3/uL (1.5-6.6); NEUTROPHILS % (AUTO) 69.9 %; PLT - PLATELET COUNT 217 10^3/uL (130-450); RED BLOOD COUNT 4.01 10^6/uL (4.20-5.40); RED CELL DISTRIBUTION WIDTH 13.6 % (12.0-15.0); WHITE BLOOD COUNT 9.9 x10^3/uL (4.8-10.8)
[2024-08-13 04:34] LABS: CREATININE 0.6 mg/dL (0.6-1.3); POTASSIUM 3.8 mmol/L (3.5-4.5)
[2024-08-13] MEDS: CALCIUM CARBONATE CHEW 500 MG TABLET PO SCH ×2 (07:42→11:56)
[2024-08-13] MEDS: INSULIN GLARGINE-YFGN 300 UNIT/3 ML PEN SUBQ STA (08:15)
[2024-08-13] MEDS: INSULIN LISPRO 300 UNIT/3 ML PEN SUBQ SCH ×2 (08:15→11:56)
--- NOTE | 2024-08-13 08:17 | PROVIDER PROGRESS NOTE ---
Subjective Subjective Subjective: Today, patient states that she feels like her nausea, vomiting, and abdominal pain have all resolved. She feels much better than when she came in. She is not sure what drove her into DKA this time around. She has been a type 1 diabetic for a long time. She denies missing any doses of her insulin. She denies any fevers, chills, shortness of breath. She has occasional dysuria. Denies any new rashes, abdominal pain, etc. Of note, she has a history of borderline personality disorder/bipolar disorder and is on Depakote, seroquel, fluoxetine, and trazodone. Current Medications Current Medications Current Medications: Current Medications Generic Name Dose Route Start Last Admin Trade Name Freq PRN Reason Stop Dose Admin Acetaminophen 650 mg 08/12/24 21:23 08/12/24 23:54 Acetaminophen 325 Mg Tablet PO 650 mg Q4HR PRN Administration Pain 1 to 4, or Fever Calcium Carbonate/Glycine 1,250 mg 08/13/24 08:00 08/13/24 07:42 Calcium Carbonate Chew 500 Mg Tablet PO 08/13/24 12:01 1,250 mg Q4H CLARIBEL Administration Protocol Enoxaparin Sodium 40 mg 08/13/24 09:00 Enoxaparin 40 Mg/0.4 Ml Syringe SUBQ DAILY [facility] Insulin Human Regular 100 unit in 100 mls @ 6.1 mls/hr 08/12/24 20:12 08/13/24 05:03 Myxredlin 100 Unit/100 Ml Bag IV 08/13/24 12:35 0 unit/kg/hr .[id number] STA 0 mls/hr Titration Protocol 0.1 UNIT/KG/HR Sodium Chloride 1,000 mls @ 125 mls/hr 08/12/24 22:00 08/13/24 06:07 Normal Saline 0.9% IV Not Given .Q8H CLARIBEL Insulin Human Regular 100 unit in 100 mls @ 6.1 mls/hr 08/12/24 22:00 08/12/24 23:07 Myxredlin 100 Unit/100 Ml Bag IV Not Given .[id number] CLARIBEL Protocol 0.1 UNIT/KG/HR Dextrose/Sodium Chloride 1,000 mls @ 100 mls/hr 08/13/24 01:00 08/13/24 01:06 D5.45ns IV 100 mls/hr .Q10H CLARIBEL Administration Insulin Human Lispro 1 - 5 unit 08/13/24 08:00 Insulin Lispro 300 Unit/3 Ml Pen SUBQ 0800,1200,1700,2100 [facility] Protocol Morphine Sulfate 2 mg 08/13/24 03:05 08/13/24 07:42 Morphine 2 Mg/Ml Carpuject IVP 2 mg Q4HR PRN Administration Severe Pain (Level 7-10) Ondansetron HCl 4 mg 08/12/24 21:23 08/13/24 03:04 Ondansetron 4 Mg/2 Ml Vial IVP 4 mg Q6HR PRN Administration Nausea / Vomiting Sodium Chloride 10 ml 08/13/24 01:00 08/13/24 01:06 Sodium Chloride Flush 0.9% 10 Ml Syringe IVP 10 ml 0100,0900,1700 CLARIBEL Administration Sodium Chloride 10 ml 08/12/24 21:23 Sodium Chloride Flush 0.9% 10 Ml Syringe IVP PRN PRN NEEDED PER PROVIDER ORDERS Trazodone HCl 50 mg 08/12/24 23:45 08/12/24 23:54 Trazodone 50 Mg Tablet PO 50 mg QPM CLARIBEL Administration Objective Vital Signs/Intake & Output Reviewed Vital Signs: Yes Vital Signs: Vital Signs x48h Temp Pulse Resp BP Pulse Ox 08/13/24 08:00 97.7 F 69 19 104/61 96 08/13/24 07:00 72 16 99/53 L 95 08/13/24 06:00 72 18 99/53 L 96 08/13/24 05:00 97.7 F 71 19 101/57 L 96 08/13/24 04:00 74 19 103/52 L 95 08/13/24 03:00 75 19 101/65 96 08/13/24 02:00 75 13 96/50 L 95 08/13/24 01:00 82 19 94/49 L 95 Intake & Output: Intake & Output 08/10/24 08/11/24 08/12/24 08/13/24 23:59 23:59 23:59 23:59 Intake Total 2763 / 2763 1074 / 1074 Output Total 250 / 250 525 / 525 Balance 2513 / 2513 549 / 549 Weight (kg) 61 kg 62 kg Objective General Appearance: positive No acute distress, Alert and Anxious (mildly anxious); negative Lethargic Eyes Bilateral: positive Normal inspection, PERRL and EOMI ENT: positive ENT inspection nml, Pharynx nml and No signs of dehydration Neck: positive Nml inspection, Thyroid nml and No JVD Respiratory: positive Chest non-tender, No respiratory distress and Breath sounds nml; negative Wheezes, Rales or Rhonchi Cardiovascular: positive Regular rate & rhythm, No murmur and No gallop; negative Systolic murmur or Diastolic murmur Abdomen: positive Non-tender; negative Guarding, Rebound, Hepatomegaly, Splenomegaly, Mass or Abnml bowel sounds Back: positive Nml inspection; negative CVA tenderness (R) Skin: positive Color nml, No rash, Warm and Dry; negative Cyanosis or Diaphoresis Extremities: positive Non-tender, Full ROM and Nml appearance Neurologic/Psychiatric: positive Oriented x3, Motor nml and Mood/affect nml Lab Results 08/13/24 04:12 08/13/24 04:12 Other Labs: Lab Results x24hrs 08/13/24 08/13/24 08/13/24 Range/Units 07:58 06:58 06:01 WBC (4.8-10.8) x10^3/uL RBC (4.20-5.40) 10^6/uL Hgb (12.0-16.0) g/dL Hct (37.0-47.0) % MCV (81.0-99.0) fL MCH (27.0-31.0) pg MCHC (32.0-36.0) g/dL RDW (12.0-15.0) % Plt Count (130-450) 10^3/uL MPV (7.9-10.8) fL Neut # (Auto) (1.5-6.6) 10^3/uL Lymph # (Auto) (1.5-3.5) 10^3/uL Ballard # (Auto) (0.0-1.0) 10^3/uL Eos # (Auto) (0.0-0.7) 10^3/uL Baso # (Auto) (0.0-0.1) 10^3/uL Absolute Nucleated RBC x10^3/uL Nucleated RBC % /100WBC VBG pH (7.31-7.41) VBG pCO2 (41-51) mmHg VBG pO2 (25-47) mmHg VBG HCO3 (23-28) mmol/L VBG Total CO2 (24-29) mmol/L VBG O2 Saturation (60-80) % VBG Base Excess (-2 - +2) mmol/L Ionized Calcium (1.15-1.33) mmol/L Sodium (135-145) mmol/L Potassium (3.5-4.5) mmol/L Chloride (101-111) mmol/L Carbon Dioxide (21-32) mmol/L Anion Gap (6-13) BUN (6-20) mg/dL Creatinine (0.6-1.3) mg/dL Estimated GFR (MDRD) (>89) Glucose (74-104) mg/dL POC Whole Bld Glucose 76 85 92 (70-100) mg/dL Calcium (8.5-10.3) mg/dL Magnesium (1.7-2.3) mg/dL Total Bilirubin (0.2-1.0) mg/dL AST (10-42) IU/L ALT (10-60) IU/L Alkaline Phosphatase (42-121) IU/L Total Protein (6.4-8.9) g/dL Albumin (3.2-5.5) g/dL Globulin (2.1-4.2) g/dL Albumin/Globulin Ratio (1.0-2.2) Lipase (11-82) U/L Serum HCG, Qual Urine Color Urine Clarity (CLEAR) Urine pH (5.0-7.5) PH Ur Specific Maynard (1.002-1.030) Urine Protein (NEGATIVE) mg/dL Urine Glucose (UA) (NEGATIVE) mg/dL Urine Ketones (NEGATIVE) mg/dL Urine Occult Blood (NEGATIVE) Urine Nitrite (NEGATIVE) Urine Bilirubin (NEGATIVE) Urine Urobilinogen (NORMAL) E.U./dL Ur Leukocyte Esterase (NEGATIVE) Ur Microscopic Review Urine Culture Comments Nasal Screen MRSA (PCR) (NEGATIVE) Serum Ketones (NEGATIVE) 08/13/24 08/13/24 08/13/24 Range/Units 04:56 04:12 02:59 WBC 9.9 (4.8-10.8) x10^3/uL RBC 4.01 L (4.20-5.40) 10^6/uL Hgb 11.6 L (12.0-16.0) g/dL Hct 35.9 L (37.0-47.0) % MCV 89.5 (81.0-99.0) fL MCH 28.9 (27.0-31.0) pg MCHC 32.3 (32.0-36.0) g/dL RDW 13.6 (12.0-15.0) % Plt Count 217 (130-450) 10^3/uL MPV 9.3 (7.9-10.8) fL Neut # (Auto) 6.9 H (1.5-6.6) 10^3/uL Lymph # (Auto) 2.2 (1.5-3.5) 10^3/uL Ballard # (Auto) 0.7 (0.0-1.0) 10^3/uL Eos # (Auto) 0.0 (0.0-0.7) 10^3/uL Baso # (Auto) 0.0 (0.0-0.1) 10^3/uL Absolute Nucleated RBC 0.00 x10^3/uL Nucleated RBC % 0.0 /100WBC VBG pH (7.31-7.41) VBG pCO2 (41-51) mmHg VBG pO2 (25-47) mmHg VBG HCO3 (23-28) mmol/L VBG Total CO2 (24-29) mmol/L VBG O2 Saturation (60-80) % VBG Base Excess (-2 - +2) mmol/L Ionized Calcium (1.15-1.33) mmol/L Sodium 134 L (135-145) mmol/L Potassium 3.8 (3.5-4.5) mmol/L Chloride 109 (101-111) mmol/L Carbon Dioxide 22 (21-32) mmol/L Anion Gap 3.0 L (6-13) BUN 9 (6-20) mg/dL Creatinine 0.6 (0.6-1.3) mg/dL Estimated GFR (MDRD) 114 (>89) Glucose 114 H (74-104) mg/dL POC Whole Bld Glucose 84 144 (70-100) mg/dL Calcium 7.0 L (8.5-10.3) mg/dL Magnesium (1.7-2.3) mg/dL Total Bilirubin (0.2-1.0) mg/dL AST (10-42) IU/L ALT (10-60) IU/L Alkaline Phosphatase (42-121) IU/L Total Protein (6.4-8.9) g/dL Albumin (3.2-5.5) g/dL Globulin (2.1-4.2) g/dL Albumin/Globulin Ratio (1.0-2.2) Lipase (11-82) U/L Serum HCG, Qual Urine Color Urine Clarity (CLEAR) Urine pH (5.0-7.5) PH Ur Specific Maynard (1.002-1.030) Urine Protein (NEGATIVE) mg/dL Urine Glucose (UA) (NEGATIVE) mg/dL Urine Ketones (NEGATIVE) mg/dL Urine Occult Blood (NEGATIVE) Urine Nitrite (NEGATIVE) Urine Bilirubin (NEGATIVE) Urine Urobilinogen (NORMAL) E.U./dL Ur Leukocyte Esterase (NEGATIVE) Ur Microscopic Review Urine Culture Comments Nasal Screen MRSA (PCR) (NEGATIVE) Serum Ketones (NEGATIVE) 08/13/24 08/13/24 08/13/24 Range/Units 02:38 02:10 01:02 WBC (4.8-10.8) x10^3/uL RBC (4.20-5.40) 10^6/uL Hgb (12.0-16.0) g/dL Hct (37.0-47.0) % MCV (81.0-99.0) fL MCH (27.0-31.0) pg MCHC (32.0-36.0) g/dL RDW (12.0-15.0) % Plt Count (130-450) 10^3/uL MPV (7.9-10.8) fL Neut # (Auto) (1.5-6.6) 10^3/uL Lymph # (Auto) (1.5-3.5) 10^3/uL Ballard # (Auto) (0.0-1.0) 10^3/uL Eos # (Auto) (0.0-0.7) 10^3/uL Baso # (Auto) (0.0-0.1) 10^3/uL Absolute Nucleated RBC x10^3/uL Nucleated RBC % /100WBC VBG pH 7.340 (7.31-7.41) VBG pCO2 (41-51) mmHg VBG pO2 (25-47) mmHg VBG HCO3 (23-28) mmol/L VBG Total CO2 (24-29) mmol/L VBG O2 Saturation (60-80) % VBG Base Excess (-2 - +2) mmol/L Ionized Calcium 1.08 L (1.15-1.33) mmol/L Sodium 134 L (135-145) mmol/L Potassium 4.0 (3.5-4.5) mmol/L Chloride 108 (101-111) mmol/L Carbon Dioxide 23 (21-32) mmol/L Anion Gap 3.0 L (6-13) BUN 10 (6-20) mg/dL Creatinine 0.6 (0.6-1.3) mg/dL Estimated GFR (MDRD) 114 (>89) Glucose 159 H (74-104) mg/dL POC Whole Bld Glucose 161 180 (70-100) mg/dL Calcium 7.0 L (8.5-10.3) mg/dL Magnesium 2.3 (1.7-2.3) mg/dL Total Bilirubin (0.2-1.0) mg/dL AST (10-42) IU/L ALT (10-60) IU/L Alkaline Phosphatase (42-121) IU/L Total Protein (6.4-8.9) g/dL Albumin (3.2-5.5) g/dL Globulin (2.1-4.2) g/dL Albumin/Globulin Ratio (1.0-2.2) Lipase (11-82) U/L Serum HCG, Qual Urine Color Urine Clarity (CLEAR) Urine pH (5.0-7.5) PH Ur Specific Maynard (1.002-1.030) Urine Protein (NEGATIVE) mg/dL Urine Glucose (UA) (NEGATIVE) mg/dL Urine Ketones (NEGATIVE) mg/dL Urine Occult Blood (NEGATIVE) Urine Nitrite (NEGATIVE) Urine Bilirubin (NEGATIVE) Urine Urobilinogen (NORMAL) E.U./dL Ur Leukocyte Esterase (NEGATIVE) Ur Microscopic Review Urine Culture Comments Nasal Screen MRSA (PCR) (NEGATIVE) Serum Ketones (NEGATIVE) 08/13/24 08/12/24 08/12/24 Range/Units 00:02 23:02 22:38 WBC (4.8-10.8) x10^3/uL RBC (4.20-5.40) 10^6/uL Hgb (12.0-16.0) g/dL Hct (37.0-47.0) % MCV (81.0-99.0) fL MCH (27.0-31.0) pg MCHC (32.0-36.0) g/dL RDW (12.0-15.0) % Plt Count (130-450) 10^3/uL MPV (7.9-10.8) fL Neut # (Auto) (1.5-6.6) 10^3/uL Lymph # (Auto) (1.5-3.5) 10^3/uL Ballard # (Auto) (0.0-1.0) 10^3/uL Eos # (Auto) (0.0-0.7) 10^3/uL Baso # (Auto) (0.0-0.1) 10^3/uL Absolute Nucleated RBC x10^3/uL Nucleated RBC % /100WBC VBG pH (7.31-7.41) VBG pCO2 (41-51) mmHg VBG pO2 (25-47) mmHg VBG HCO3 (23-28) mmol/L VBG Total CO2 (24-29) mmol/L VBG O2 Saturation (60-80) % VBG Base Excess (-2 - +2) mmol/L Ionized Calcium (1.15-1.33) mmol/L Sodium 136 (135-145) mmol/L Potassium 4.4 (3.5-4.5) mmol/L Chloride 109 (101-111) mmol/L Carbon Dioxide 17 L (21-32) mmol/L Anion Gap 10.0 (6-13) BUN 12 (6-20) mg/dL Creatinine 0.6 (0.6-1.3) mg/dL Estimated GFR (MDRD) 114 (>89) Glucose 193 H (74-104) mg/dL POC Whole Bld Glucose 182 187 (70-100) mg/dL Calcium 7.4 L (8.5-10.3) mg/dL Magnesium 1.6 L (1.7-2.3) mg/dL Total Bilirubin (0.2-1.0) mg/dL AST (10-42) IU/L ALT (10-60) IU/L Alkaline Phosphatase (42-121) IU/L Total Protein (6.4-8.9) g/dL Albumin (3.2-5.5) g/dL Globulin (2.1-4.2) g/dL Albumin/Globulin Ratio (1.0-2.2) Lipase (11-82) U/L Serum HCG, Qual Urine Color Urine Clarity (CLEAR) Urine pH (5.0-7.5) PH Ur Specific Maynard (1.002-1.030) Urine Protein (NEGATIVE) mg/dL Urine Glucose (UA) (NEGATIVE) mg/dL Urine Ketones (NEGATIVE) mg/dL Urine Occult Blood (NEGATIVE) Urine Nitrite (NEGATIVE) Urine Bilirubin (NEGATIVE) Urine Urobilinogen (NORMAL) E.U./dL Ur Leukocyte Esterase (NEGATIVE) Ur Microscopic Review Urine Culture Comments Nasal Screen MRSA (PCR) NEGATIVE (NEGATIVE) Serum Ketones (NEGATIVE) 08/12/24 08/12/24 08/12/24 Range/Units 22:23 20:58 19:19 WBC (4.8-10.8) x10^3/uL RBC (4.20-5.40) 10^6/uL Hgb (12.0-16.0) g/dL Hct (37.0-47.0) % MCV (81.0-99.0) fL MCH (27.0-31.0) pg MCHC (32.0-36.0) g/dL RDW (12.0-15.0) % Plt Count (130-450) 10^3/uL MPV (7.9-10.8) fL Neut # (Auto) (1.5-6.6) 10^3/uL Lymph # (Auto) (1.5-3.5) 10^3/uL Ballard # (Auto) (0.0-1.0) 10^3/uL Eos # (Auto) (0.0-0.7) 10^3/uL Baso # (Auto) (0.0-0.1) 10^3/uL Absolute Nucleated RBC x10^3/uL Nucleated RBC % /100WBC VBG pH (7.31-7.41) VBG pCO2 (41-51) mmHg VBG pO2 (25-47) mmHg VBG HCO3 (23-28) mmol/L VBG Total CO2 (24-29) mmol/L VBG O2 Saturation (60-80) % VBG Base Excess (-2 - +2) mmol/L Ionized Calcium (1.15-1.33) mmol/L Sodium 135 (135-145) mmol/L Potassium 4.4 (3.5-4.5) mmol/L Chloride 107 (101-111) mmol/L Carbon Dioxide 14 L (21-32) mmol/L Anion Gap 14.0 H (6-13) BUN 13 (6-20) mg/dL Creatinine 0.7 (0.6-1.3) mg/dL Estimated GFR (MDRD) 95 (>89) Glucose 242 H (74-104) mg/dL POC Whole Bld Glucose 182 (70-100) mg/dL Calcium 7.3 L (8.5-10.3) mg/dL Magnesium 1.6 L (1.7-2.3) mg/dL Total Bilirubin (0.2-1.0) mg/dL AST (10-42) IU/L ALT (10-60) IU/L Alkaline Phosphatase (42-121) IU/L Total Protein (6.4-8.9) g/dL Albumin (3.2-5.5) g/dL Globulin (2.1-4.2) g/dL Albumin/Globulin Ratio (1.0-2.2) Lipase (11-82) U/L Serum HCG, Qual Urine Color LIGHT YELLOW Urine Clarity CLEAR (CLEAR) Urine pH 5.5 (5.0-7.5) PH Ur Specific Maynard 1.025 (1.002-1.030) Urine Protein NEGATIVE (NEGATIVE) mg/dL Urine Glucose (UA) >=1000 H (NEGATIVE) mg/dL Urine Ketones >=80 H (NEGATIVE) mg/dL Urine Occult Blood NEGATIVE (NEGATIVE) Urine Nitrite NEGATIVE (NEGATIVE) Urine Bilirubin NEGATIVE (NEGATIVE) Urine Urobilinogen 0.2 (NORMAL) (NORMAL) E.U./dL Ur Leukocyte Esterase NEGATIVE (NEGATIVE) Ur Microscopic Review NOT INDICATED Urine Culture Comments NOT INDICATED Nasal Screen MRSA (PCR) (NEGATIVE) Serum Ketones (NEGATIVE) 08/12/24 Range/Units 19:04 WBC 13.6 H (4.8-10.8) x10^3/uL RBC 4.87 (4.20-5.40) 10^6/uL Hgb 14.3 (12.0-16.0) g/dL Hct 43.6 (37.0-47.0) % MCV 89.5 (81.0-99.0) fL MCH 29.4 (27.0-31.0) pg MCHC 32.8 (32.0-36.0) g/dL RDW 13.6 (12.0-15.0) % Plt Count 276 (130-450) 10^3/uL MPV 9.7 (7.9-10.8) fL Neut # (Auto) 10.8 H (1.5-6.6) 10^3/uL Lymph # (Auto) 1.7 (1.5-3.5) 10^3/uL Ballard # (Auto) 0.9 (0.0-1.0) 10^3/uL Eos # (Auto) 0.0 (0.0-0.7) 10^3/uL Baso # (Auto) 0.1 (0.0-0.1) 10^3/uL Absolute Nucleated RBC 0.00 x10^3/uL Nucleated RBC % 0.0 /100WBC VBG pH 7.255 L (7.31-7.41) VBG pCO2 30.6 L (41-51) mmHg VBG pO2 67.0 H (25-47) mmHg VBG HCO3 13.6 L (23-28) mmol/L VBG Total CO2 15.0 L (24-29) mmol/L VBG O2 Saturation 90.0 H (60-80) % VBG Base Excess -14.0 L (-2 - +2) mmol/L Ionized Calcium (1.15-1.33) mmol/L Sodium 132 L (135-145) mmol/L Potassium 4.7 H (3.5-4.5) mmol/L Chloride 95 L (101-111) mmol/L Carbon Dioxide 13 L (21-32) mmol/L Anion Gap 24.0 H (6-13) BUN 15 (6-20) mg/dL Creatinine 0.7 (0.6-1.3) mg/dL Estimated GFR (MDRD) 95 (>89) Glucose 409 H (74-104) mg/dL POC Whole Bld Glucose (70-100) mg/dL Calcium 8.6 (8.5-10.3) mg/dL Magnesium (1.7-2.3) mg/dL Total Bilirubin 0.8 (0.2-1.0) mg/dL AST 9 L (10-42) IU/L ALT 8 L (10-60) IU/L Alkaline Phosphatase 59 (42-121) IU/L Total Protein 7.2 (6.4-8.9) g/dL Albumin 3.9 (3.2-5.5) g/dL Globulin 3.3 (2.1-4.2) g/dL Albumin/Globulin Ratio 1.2 (1.0-2.2) Lipase < 10 L (11-82) U/L Serum HCG, Qual NEGATIVE Urine Color Urine Clarity (CLEAR) Urine pH (5.0-7.5) PH Ur Specific Maynard (1.002-1.030) Urine Protein (NEGATIVE) mg/dL Urine Glucose (UA) (NEGATIVE) mg/dL Urine Ketones (NEGATIVE) mg/dL Urine Occult Blood (NEGATIVE) Urine Nitrite (NEGATIVE) Urine Bilirubin (NEGATIVE) Urine Urobilinogen (NORMAL) E.U./dL Ur Leukocyte Esterase (NEGATIVE) Ur Microscopic Review Urine Culture Comments Nasal Screen MRSA (PCR) (NEGATIVE) Serum Ketones MODERATE H (NEGATIVE) Assessment/Plan Problem List (1) DKA (diabetic ketoacidosis): Impression: Patient presented in DKA. This is now resolved. Patient to eat this morning, transition to long-acting and short acting insulin. Will stop insulin drip, D5. Continue home regimen on discharge. Qualifiers: Diabetes mellitus complication detail: without coma Diabetes mellitus type: type 1 Qualified Code(s): E10.10 - Type 1 diabetes mellitus with ketoacidosis without coma (2) Venereal disease screening: Impression: Chlamydia, trichomoniasis, gonorrhea urine test ordered. Syphilis, HIV blood test ordered, pending. (3) Type 1 diabetes mellitus: Impression: Continue home regimen of insulin glargine 30 units nightly, insulin lispro 5 units 3 times a day, as well as sliding scale. Continue to follow-up with primary care physician. Qualifiers: Diabetes mellitus complication detail: without coma Diabetes mellitus complication status: with ketoacidosis Qualified Code(s): E10.10 - Type 1 diabetes mellitus with ketoacidosis without coma (4) Borderline personality disorder: Impression: Continue home medications including trazodone, Seroquel, fluoxetine, Depakote. Continue to follow-up with psychiatry outpatient. (5) Bipolar disorder: Impression: Continue home medications including trazodone, Seroquel, fluoxetine, Depakote. Continue to follow-up with psychiatry outpatient. Qualifiers: Active/Remission status: remission status unspecified Qualified Code(s): F31.9 - Bipolar disorder, unspecified
[2024-08-13] MEDS: DIVALPROEX DR 250 MG TABLET PO STA (08:20)
[2024-08-13] MEDS: ENOXAPARIN 40 MG/0.4 ML SYRINGE SUBQ SCH (08:23)
--- NOTE | 2024-08-13 09:54 | Discharge Summary ---
"Discharge Summary Admit Date: 08/12/24 Discharge Date: 08/13/24 Discharging Provider: Dr. Darinel Marie Primary Care Provider: [facility] (sees multiple physicians there) Discharge Facility Name: Home DIAGNOSES Admission Diagnoses: DKA Nausea and vomiting Leukocytosis Dehydartion DM 2 uncontrolled Discharge Diagnoses with Status of Each Condition: Diabetic ketoacidosisresolved. Patient transitioned to sliding scale insulin, long-acting insulin. Continue home regimen on discharge. Advised to follow-up with primary care physician. Nausea, vomitingresolved. Leukocytosisresolved. Likely reactive to above. No infectious process noted. High anion gap metabolic acidosisresolved, secondary to DKA. Dehydrationresolved, secondary to DKA. Type 1 diabetes mellituscontinue follow-up with PCP, continue home insulin regimen. Bipolar disorder, borderline personality disordercontinue home regimen including trazodone, fluoxetine, Seroquel, Depakote. Venereal disease screeningurine chlamydia, gonorrhea, trichomonas ordered, sent. RPR and HIV also sent. Will call patient with results once received. HPI History of Present Illness: Per Dr. Frazier: 34 y old female with PMH DM type 2 presented to ER with C/O nausea and vomiting for one day. Denies KAMARA, chest pain, SOB, cough, abdominal pain, diarrhea, constipation or symptoms On presetnation, pt was afebrile Labs showed leukocytosis, blood glucose 408, anion gap 24, bicarb 13, ketones positive In ER, pt was given 12 units of IV insulin and started on insulin gtt. Pt also received 3L NS bolus Repeat Blood glucose 268 Pt is admitted due to DKA CONSULTS | PROCEDURES Consultations: Pharmacy HOSPITAL COURSE Hospital Course: Patient is a 34-year-old female with a longstanding history of type 1 diabetes who presented for nausea and vomiting. She was found to be in DKA. She does not know what triggered this episode of DKA. She denies any infectious symptoms including cough, fever, chills, shortness of breath, abdominal pain, diarrhea, constipation. She states that she has had intermittent dysuria. Urinalysis on admission was negative for any infection. She denies any vaginal discharge. She is sexually active with 1 partner, and is okay with doing venereal disease screening. For DKA, she was placed on insulin drip, IV fluids overnight. This resolved. Her nausea, vomiting also resolved. She will be discharged home on her home insulin regimen. She does have a primary care doctor outside of [place]. She was advised to follow-up with them in the outpatient setting for further management. Moreover, she does see a psychiatrist for her borderline personality disorder as well as her bipolar disorder. She was advised to continue her current home medications. Overall, the patient was feeling improved. She was deemed suitable for discharge home with close follow-up with her primary care physician as well as her psychiatrist. ALLERGIES Allergies Allergy/AdvReac Type Severity Reaction Status Date / Time ciprofloxacin (From Cipro) Allergy Edema Verified 08/12/24 19:14 Penicillins Allergy Hives Verified 08/12/24 19:14 MEDICATIONS Ambulatory Orders Medication Instructions Recorded Confirmed insulin glargine 100 unit/mL (3 32 unit subcut QPM 03/13/18 08/13/24 mL) subcutaneous pen (Lantus Solostar U-100 Insulin) insulin lispro 100 unit/mL See Rx Instructions .Route 06/27/22 08/13/24 subcutaneous pen (Humalog KwikPen .COMPLEX diabetes #1 ea (U-100) Insulin) divalproex 500 mg tablet,delayed 1,000 mg PO BID 08/13/24 08/13/24 release fluoxetine 40 mg capsule 40 mg PO DAILY 08/13/24 08/13/24 quetiapine 50 mg tablet 50 mg PO DAILY 08/13/24 08/13/24 trazodone 50 mg tablet 50 mg PO HS 08/13/24 08/13/24 PHYSICAL EXAM AT DISCHARGE General Appearance: positive No acute distress and Alert; negative Anxious Eyes Bilateral: positive Normal inspection, PERRL and EOMI ENT: positive ENT inspection nml, Pharynx nml and No signs of dehydration Neck: positive Nml inspection, Thyroid nml and No JVD Respiratory: positive Chest non-tender, No respiratory distress and Breath sounds nml; negative Wheezes, Rales or Rhonchi Cardiovascular: positive Regular rate & rhythm, No murmur and No gallop; negative Systolic murmur or Diastolic murmur Abdomen: positive Non-tender, No organomegaly and Nml bowel sounds; negative No distention, Tenderness, Guarding, Rebound or Hepatomegaly Back: positive Nml inspection; negative CVA tenderness (R) or CVA tenderness (L) Skin: positive Color nml, No rash, Warm, Dry, Cyanosis and Diaphoresis Extremities: positive Non-tender, Full ROM and Nml appearance Neurologic/Psychiatric: positive Oriented x3, CN's nml (2-12) and Motor nml LABS 08/13/24 04:12 08/13/24 04:12 QUALITY (Female Hip Fx Only) Was patient sent home on osteoporosis medication?: No FOLLOW UP Follow Up: Follow up with PCP, follow up with psychiatry. TIME SPENT Time Spent in Discharge (Minutes): 35 Discharge Plan Discharge Patient Disposition: Home, Self Care Condition: Stable Prescriptions: Continued insulin glargine [Lantus Solostar U-100 Insulin] 100 UNIT/ML insulin pen 32 unit subcut QPM insulin lispro [Humalog KwikPen Insulin] 100 UNIT/ML insulin pen See Rx Instructions .Route .COMPLEX Qty: 1 0RF Patient Comments: 1 unit per 8 carbs + correction factor of 1 unit over 40. Rx Instructions: sliding scale per usual divalproex 500 mg tablet,delayed release (DR/EC) 1,000 mg PO BID fluoxetine 40 mg capsule 40 mg PO DAILY trazodone 50 mg tablet 50 mg PO HS quetiapine 50 mg tablet 50 mg PO DAILY Patient Comments: Insurance has med listed as 60 for a 30 day supply, patient states she takes only one tab daily. Discontinued insulin glargine 100 UNIT/ML solution 32 unit subcut QPM Activity Restrictions/Additional Instructions: Continue activity as tolerated. Diet: Diabetic Health Concerns: You came in because you are having some nausea and vomiting. This was typical of your diabetic ketoacidosis symptoms. You were found to be in diabetic ketoacidosis, or DKA. Overnight, we started you on an insulin drip, as well as gave you IV fluids. According to your lab work, you are now out of DKA. We also tested your urine for any infectionthis was negative. We have sent this also for STD testing; if there are any abnormal results, I will give you a call. When you go home, I want you to continue your insulin regimen as outlined by your primary care physician. I would also call your primary care physician, let them know you are in the hospital, and set up a follow-up appointment with them. I would also closely follow-up with your psychiatrist. You can continue your home medications at this time. We are glad you are feeling better, thank you for allowing us to take care of you. Care Plan Goals: 1. Take insulin as prescribed. 2. Take your other medications as prescribed. 3. Follow-up with your primary care physician. 4. Follow-up with your psychiatrist. Assessment: You can independently perform all ADLs, bathing, dressing, toileting, eating, transferring. Your home environment is successful with no significant barriers to mobility. You understand your medication regimen and can self administer medications. You need to follow-up with your primary care physician and psychiatrist. Plan of Treatment: 1. Continue with long-acting insulin as prescribed, 32 units at night. Continue sliding scale insulin, and 5 units with meals of your short acting insulin as prescribed. 2. Follow-up with your primary care physician. 3. Follow-up with your psychiatrist. 4. Continue to keep a sugar log to bring into your primary care physician so they can make any adjustments to your insulin as needed. 5. Continue to follow a low-carb, diabetic diet. Print Language: Tajik Patient Instructions: Diabetes Healthy Meals, Diabetes Eating Out Stand Alone Forms: PCP List"
[2024-08-13 09:59] LABS: HIV RAPID SCREEN NEGATIVE (NEGATIVE)
--- NOTE | 2024-08-13 10:44 | PHARMACY PROGRESS NOTE ---
Best Possible Medication History Admit Date and Time: 08/12/24 [id number] Home Medications Medication Instructions Recorded Confirmed Type insulin glargine 100 unit/mL (3 32 unit subcut QPM 03/13/18 08/13/24 History mL) subcutaneous pen (Lantus Solostar U-100 Insulin) insulin lispro 100 unit/mL See Rx Instructions .Route 06/27/22 08/13/24 Rx subcutaneous pen (Humalog KwikPen .COMPLEX diabetes #1 ea (U-100) Insulin) divalproex 500 mg tablet,delayed 1,000 mg PO BID 08/13/24 08/13/24 History release fluoxetine 40 mg capsule 40 mg PO DAILY 08/13/24 08/13/24 History quetiapine 50 mg tablet 50 mg PO DAILY 08/13/24 08/13/24 History trazodone 50 mg tablet 50 mg PO HS 08/13/24 08/13/24 History Processed by: Pharmacy (Medication reconciliation completed by pharmacy innovation assistantAmanda) Medications reviewed in ED?: No Medication History completed: Yes Patient Interview: Completed Secondary Source(s): Insurance records [facility] Statement: As the person ultimately responsible for medication therapy, providers are able to order a medication from an existing home medication list in [facility] via the "Reconcile Routine" prior to Confirmation of that medication by office support clerk. Such practice is discouraged except when the physician, in their clinical judgment, deems that a medical need exists for a medication without regard to previous use.
[2024-08-13 11:19] VITALS: BP 124/57
[2024-08-13 12:08] VITALS: TEMP 98.6; O2SAT 97
[2024-08-14 07:08] LABS: RPR Non Reactive (Non Reactive)
== END 2024-08-13 12:33 | disposition home or self-care (01) ==
LOC: ICU 18:59 → ED 18:59 → ICU 21:52
PROVIDERS: ADMIT Internal Medicine; ATTEND Internal Medicine
DX: E86.0 Dehydration; E87.20 Acidosis, unspecified; F31.9 Bipolar disorder, unspecified; R30.0 Dysuria; Z11.3 Encounter for screening for infections with a predominantly sexual mode of transmission; E10.10 Type 1 diabetes mellitus with ketoacidosis without coma; F60.3 Borderline personality disorder; D72.829 Elevated white blood cell count, unspecified